=== PATIENT | female | born 1985 | race Caucasian/White ===

== ENCOUNTER → 2017-06-09 13:29 | Outpatient (CLI) | payer MEDICAID ==
[~2017-06-09 13:29] MED LIST: FERROUS SULFAT325 MG PO; IBUPROFEN800 MG PO; MEPERIDINE HCL50 MG PO; PRENATAL GUMMIES
[2017-07-02 13:59] VITALS: BMI 46.2
== END | disposition home or self-care (01) ==
LOC: D.LDO 13:29
DX: O26.893 Other specified pregnancy related conditions, third trimester (principal); Z3A.35 35 weeks gestation of pregnancy; R06.02 Shortness of breath

== ENCOUNTER → 2017-06-23 13:39 | Outpatient (CLI) | payer MEDICAID ==
[2017-07-02 13:59] VITALS: BMI 46.2
== END | disposition home or self-care (01) ==
LOC: D.LDO 13:39
DX: O36.63X0 Maternal care for excessive fetal growth, third trimester, not applicable or unspecified (principal); Z3A.37 37 weeks gestation of pregnancy

== ENCOUNTER → 2017-06-26 12:25 | Outpatient (CLI) | payer MEDICAID ==
[2017-07-02 13:59] VITALS: BMI 46.2
== END | disposition home or self-care (01) ==
LOC: D.LDO 12:25
DX: O26.893 Other specified pregnancy related conditions, third trimester (principal); Z3A.38 38 weeks gestation of pregnancy

== ENCOUNTER → 2017-06-28 21:08 | Outpatient (CLI) | payer MEDICAID ==
[2017-07-02 13:59] VITALS: BMI 46.2
== END | disposition home or self-care (01) ==
LOC: D.LDO 21:08
DX: O40.3XX0 Polyhydramnios, third trimester, not applicable or unspecified (principal); O36.60X0 Maternal care for excessive fetal growth, unspecified trimester, not applicable or unspecified; Z3A.38 38 weeks gestation of pregnancy

== ENCOUNTER → 2017-06-30 15:40 | Outpatient (CLI) | payer MEDICAID ==
[2017-07-02 13:59] VITALS: BMI 46.2
== END | disposition home or self-care (01) ==
LOC: D.LDO 15:40
DX: O36.63X0 Maternal care for excessive fetal growth, third trimester, not applicable or unspecified (principal); Z3A.38 38 weeks gestation of pregnancy

== ENCOUNTER 2017-07-02 05:29 | Inpatient (IN) | payer MEDICAID ==
[2017-07-02] VITALS (10 sets, daily range): BP systolic 113–154; BP diastolic 63–78; BMI 46.3; BMI 46.2
[~2017-07-02 05:29] MED LIST changes: -IBUPROFEN800 MG PO; -MEPERIDINE HCL50 MG PO
[2017-07-02 06:19] LABS: HEMATOCRIT 29.7 % (36.0-48.0); HEMOGLOBIN 9.6 g/dL (12-16); MCH 29.3 pg (26.0-34.0); MCHC 32.3 g/dL (31.0-37.0); MCV 90.5 fL (80.0-100.0); MEAN PLATELET VOLUME 10.7 fL (7.4-10.4); RBC 3.28 10x6/uL (4.00-5.40); RDW 16.5 % (11.5-14.5); WBC 6.3 10x3/uL (4.8-10.8)
[2017-07-02 06:34] LABS: UDS - AMPHET NEGATIVE QUAL (NEGATIVE); UDS - BARB NEGATIVE QUAL (NEGATIVE); UDS - BENZO NEGATIVE QUAL (NEGATIVE); UDS - COCAINE NEGATIVE QUAL (NEGATIVE); UDS - OPIATE NEGATIVE QUAL (NEGATIVE); UDS - PCP NEGATIVE QUAL (NEGATIVE); UDS - THC NEGATIVE QUAL (NEGATIVE)
[2017-07-02 07:04] LABS: APPEARANCE HAZY (CLEAR); BILIRUBIN NEGATIVE (NEGATIVE); COLOR YELLOW (YELLOW); GLUCOSE NEGATIVE (NEGATIVE); KETONE NEGATIVE (NEGATIVE); NITRITE NEGATIVE (NEGATIVE); PROTEIN NEGATIVE (NEGATIVE); UROBILINOGEN NORMAL (NORMAL); WHITE CELLS - URINE 0-5 /hpf (0-5)
[2017-07-02 07:05] LABS: BACTERIA MODERATE /hpf (NONE SEEN); MUCUS <1+ /lpf (NONE SEEN)
--- NOTE | 2017-07-02 08:24 | NUR ---
BABY BOY BORN AT 0801, C SECTION DELIVERY, 9LBS,9OZ. PLACENT AT 0802
--- NOTE | 2017-07-02 09:19 | NUR ---
DERMATOMES UNABLE TO ASSESS THE PATIENT REPORTS FEELING IN ALL LOCATIONS BUT IS UNABLE TO MOVE HER LEGS FOR THE SPINAL. LABOR NURSE IN RECOVERY AND ASSESED THE FUNDUS. FIRM AT UMBILICUS SLIGHTLY TO THE LEFT AND AT UMBILICUS WITH SMALL LOCIA.
--- NOTE | 2017-07-02 09:35 | NUR ---
RECEIVED PT FROM RECOVERY ROOM POST SECTION, REPORT RECEIVED FROM JEO KAMARA RN. PT RECEIVED ON BED, TO BR #1, IVF NOTED TO BE INFUSING OFF PUMP AT MODERATE RATE, NO REDNESS OR SWELLING NOTED TO IV SITE. PITOCIN 20 UNITS PREMIXED BAG INFUSING WITH APPROX 200 ML'S LEFT TO INFUSE, SET ON PUMP BY Siva KAMARA RN AT 125 ML/HR. PT HAS LARGE WHITE DRESSING NOTED TO INCISION, C/D/I. FUNDUS FIRM, 1/U WITH PT'S HOB SLIGHTLY ELEVATED TO 20 DEGREES. SMALL RUBRA LOCHIA, NO CLOTS EXPELLED, PERIPADS X 2 CHANGED. PT HAS OSBORN CATH IN PLACE, WITH 250 ML'S YELLOW URINE NOTED IN UROMETER, PATENT, DRAINING YELLOW URINE. ABDOMEN PALPATES SOFT WITH FUNDUAL CHECKS. PT DENIES NAUSEA/VOMITING, SOB OR DIFFICULTY BREATHING AT THIS TIME. ICE WATER SERVED TO PT. PT HAS SCD'S ON. INCENTIVE SPIROMETER PROVIDED WITH INSTRUCTIONS GIVEN TO PT BY Rosa CHANG, STIVEN AD NS. PT DEMONSTRATES WELL. COUGHING AND DEEP BREATHING EXERCISES EXPLAINED TO PT WITH RETURN DEMONSTRATION, WELL. POSITION CHANGED TO RIGHT TILT, WITH PILLOWS UNDER BACK FOR SUPPORT AND COMFORT. FAMILY AT BEDSIDE. PT DENIES OTHER NEEDS AT THIS TIME. SEE EMAR FOR ALL MEDS ADM BY THIS RN.
--- NOTE | 2017-07-02 10:00 | NUR ---
FUNDUS FIRM, U/U, MODERATE RUBRA LOCHIA, NO CLOTS EXPELLED. PT ABLE TO WIGGLE TOES, WITH WEAKNESS NOTED TO BOTH FEET AND LEGS DUE TO SPINAL ANESTHESIA. PT HAS SECOND STEWARD BUTTON WITHIN REACH, AND DEMONSTRATES AND VOICES UNDERSTANDING REGARDING USE OF SECOND STEWARD BUTTON. FAMILY AT BEDSIDE. PT DENIES OTHER NEEDS.
--- NOTE | 2017-07-02 10:15 | NUR ---
FUNDUS FIRM, U/U, SMALL RUBRA LOCHIA, NO CLOTS, NO FOUL ODOR NOTED TO LOCHIA.
--- NOTE | 2017-07-02 10:30 | NUR ---
PT RATING PAIN AT 5/10 TO INCISIONAL AREA, PT REPORTS "THE DEMEROL AND THE OTHER STUFF YOU GAVE ME IS WORKING OK, BUT HASN'T COMPLETELY HELPED". PT REPORTS SHE WANTS TO WAIT TO SEE IF THESE MEDS WILL CONTINUE TO TAKE MORE OF THE PAIN AWAY BEFORE TAKING ANYTHING ELSE. FUNDUS FIRM, U/U, SMALL RUBRA LOCHIA, NO CLOTS EXPELLED. PT STARTING TO MOVE AND FEEL LEGS MORE, WITH WEAKNESS NOTED TO BOTH DUE TO SPINAL ANESTHESIA. SR UP X2, CALL LIGHT AND PHONE WITHIN REACH.
--- NOTE | 2017-07-02 11:45 | NUR ---
PT RATING PAIN 6/10, PAIN MEDICATION ORDERS REVIEWED WITH PT. DEMEROL 50 MG BOLUS DOSE ADM BY PUMP. PT IS SITTING UP IN THE BED HOLDING , BONDING WITH BABY. FAMILY AT BEDSIDE. PT DENIES OTHER NEEDS AT THIS TIME. DIETARY SERVED CLEAR LIQUIDS. PT DENIES OTHER NEEDS.
--- NOTE | 2017-07-02 13:00 | NUR ---
TO PT'S ROOM, PT IS SITTING UP IN THE BED, HOLDING AND . PT RATING PAIN 4/10 NOW. STATES "THE DEMEROL HAS HELPED WITH THE PAIN". PT DENIES OTHER NEEDS AT THIS TIME.
--- NOTE | 2017-07-02 16:00 | NUR ---
TO PT'S ROOM, FUNDUS FIRM, U/1, MODERATE RUBRA LOCHIA, NO CLOTS EXPRESSED WITH MASSAGE. ABDOMEN CONTINUES TO PALPATE SOFT. PERICARE DONE WITH WARM WET WASHCLOTHS, WITH OSBORN CARE GIVEN. PERIPADS/TOWELS/CHUX CHANGED. GOWN CHANGED. SCANT AMOUNT OF BLOOD ON CENTER BOTTOM EDGE OF BANDAGE THAT HAS COME OFF OF PERIPAD. PT POSITION CHANGED TO LEFT TILT. OSBORN CATH CONTINUES TO DRAIN YELLOW URINE. PT HAS EATEN CLEAR LIQUID DIET, AND DRINKING WATER, DENIES NAUSEA, SOB, OR DIFFICULTY BREATHING AT THIS TIME.
--- NOTE | 2017-07-02 18:15 | NUR ---
TO PT'S ROOM, PERICARE DONE, PERIPADS CHANGED. PT'S POSITION CHANGED TO HER RIGHT TILT WITH PILLOWS UNDER BACK FOR SUPPORT AND COMFORT. NEW ICE VALERIE PLACED OVER GOWN TO INCISION. SCD'S REMAIN ON. PT ABLE TO MOVE AND ASSIST WITH POSITION CHANGE WELL, HAS FULL MOVEMENT OF BOTH LEGS, NO WEAKNESS NOTED. PT USES I/S WELL. LARGE GLASS OF ICE WATER SERVED. PT HAS CLEAR LIQUID TRAY ON BEDSIDE TABLE. PT CONTINUES TO DENY N/V, SOB, OR DIFFICULTY BREATHING AT THIS TIME. FAMILY AT BEDSIDE. INFANT IN CRIB.
--- NOTE | 2017-07-02 19:00 | NUR ---
REPORT GIVEN TO 7 P SHIFT.
--- NOTE | 2017-07-02 19:30 | NUR ---
PM ASSESSMENT COMPLETE. PT REPORTS ADEQUATE PAIN RELIEF FROM PRN MEDS. HAS ICE WATER ON BEDSIDE TABLE. INFANT IN ROOM. FAMILY IN ROOM. BED LOW SR UPX2. C/L IN REACH. NO OTHER NEEDS VOICED.
--- NOTE | 2017-07-02 21:00 | NUR ---
Radha pads and underpands changed. Small amount of lochia noted. Fundus firm. Christensen draining. Pt reports pain well controlled. No other needs voiced. C/L in reach. Bed low. SR upx2. Family at bedside.
--- NOTE | 2017-07-02 21:15 | NUR ---
To room to assist mother to breastfeed infant. Successfully assisted mother to position and latch NB to breast.
--- NOTE | 2017-07-02 22:30 | NUR ---
PT REPORTS PAIN AT IV SITE. IV SITE SWOLLEN AND BRUISED. APPEARS INFILTRATED. IVF STOPPED. IV DC'D WITH TIP INTACT. BANDAGE TO SITE. PT TOLERATED WELL.
--- NOTE | 2017-07-02 22:34 | NUR ---
PRN PAIN MEDICATION ADMINISTERED ORDERED. SENIOR ANALYTIC CONSULTANT DC'D WHEN IV DC'D.
--- NOTE | 2017-07-02 22:42 | NUR ---
OSBORN CATH DC'D WITH TIP INTACT. PT TOLERATED WELL. INSTRUCTED TO CALL FOR ASSISTANCE TO BATHROOM WHEN FEELS URGE TO VOID. PT VERB UNDERSTANDING. C/L IN REACH. BED LOW. SR UPX2.
--- NOTE | 2017-07-02 23:22 | NUR ---
Pt resting with eyes closed. VS obtained. Reports feeling "sweaty and clammy" from pain medication. Denies pain. Room temp decreased. Fresh ice water provided. C/L in reach. Bed low. SR upx2. No other needs voiced.
--- NOTE | 2017-07-03 00:35 | NUR ---
CALLED TO ROOM BY PATIENT AT THIS TIME, PT REQUESTING ASSISTANCE WITH . INFANT PLACED IN FOOTBALL HOLD AND PT ASSISTED WITH GETTING TO LATCH. UNSUCCESSFUL AFTER MULTIPLE ATTEMPTS SO PATIENT REQUESTED TO USE THE NIPPLE SHIELD. NIPPLE SHIELD APPLIED AND AFTER TWO ATTEMPTS AT LATCHING PATIENT STATES, "CAN I JUST GET A BOTTLE? HE JUST SCREAMS LIKE SOMETHING IS WRONG OR HE ISNT GETTING ANYTHING" PATIENT REASSURED AND NURSERY NURSE INFORMED OF PATIENT WANTING TO FEED HER BABY A BOTTLE.
--- NOTE | 2017-07-03 02:03 | NUR ---
Pt request prn pain med. See EMAR for manager medical. VS obtained while in room. Pt denies any other needs or concerns. Discussed getting OOB and voiding by 0400. Pt verbalizes understanding. No other questions voiced. C/L in reach. Bed low. SR upx2.
[2017-07-03 02:04] VITALS: BP 125/58
--- NOTE | 2017-07-03 04:00 | NUR ---
Pt reports urge to void. Assisted up to sitting position on side of bed. Deniez dizziness. Ambulated with slow steady gait to bathroom with nurse at side. Voided 500ml urine into hat. Pilar care performed. Mesh panties and pilar pads applied. Blue underpad on bed changed while pt on toilet. Pt ambulated back to bed with steady gait. Fresh ice pack provided. Fresh ice water provided. C/L in reach. Bed low. SR upx2. Pt asking for . NBN notified.
[2017-07-03 05:19] LABS: HEMATOCRIT 28.9 % (36.0-48.0); HEMOGLOBIN 9.2 g/dL (12-16); MCH 28.8 pg (26.0-34.0); MCHC 31.8 g/dL (31.0-37.0); MCV 90.3 fL (80.0-100.0); MEAN PLATELET VOLUME 11.1 fL (7.4-10.4); RBC 3.2 10x6/uL (4.00-5.40); RDW 16.9 % (11.5-14.5); WBC 5.8 10x3/uL (4.8-10.8)
[2017-07-03 05:30] VITALS: BP 132/72
--- NOTE | 2017-07-03 05:30 | NUR ---
To room to assist pt with . VS obtained at this time. Pt reports adequate pain relief with prn pain meds. C/L in reach. Bed low. SR upx2.
--- NOTE | 2017-07-03 06:21 | NUR ---
Pt request prn pain medication. See EMAR for medical i d sales. No other needs voiced.
[2017-07-03 07:26] LABS: RAPID PLASMA REAGIN Non Reactive (Non Reactive)
[2017-07-03 07:27] VITALS: BP 123/69
--- NOTE | 2017-07-03 07:27 | NUR ---
RECEIVED PT LYING SUPINE IN BED. AWAKE. VSS. HRRR WITHOUT AUDIBLE MURMUR. BBS CLEAR. BS HYPOACTIVE X 4. STATES PASSING GAS. ABDOMEN SOFT/NON-DISTENDED. FUNDUS FIRM AT U/U. RUBRA LOCHIA SMALL AMT. NO CLOTS NOTED. PT STATES PASSING GAS. ABDOMINAL DRESSING DRY WITHOUT DRAINAGE. NEG HOMANS' SIGN. PPP. 2+/2+ NON-PITTING EDEMA NOTED TO BLE. PT STATES C/O BURNING OF "5" ON 0-10 PAIN SCALE. IBUPROFEN 600 MG GIVEN PO ORDERED. PT INSTRUCTED ON MED. VERBALIZES UNDERSTANDING. FRESH ICE WATER PROVIDED TO PT. SR UP X 2. CALL LIGHT IN REACH.
--- NOTE | 2017-07-03 08:30 | NUR ---
DR CHANG VISITS WITH PT.
--- NOTE | 2017-07-03 08:30 | NUR ---
PT LYING SUPINE IN BED. PT RESTING WITH EYES CLOSED. RESP NON-LABORED. PT NOT DISTURBED TO ALLOW FOR REST.
--- NOTE | 2017-07-03 09:30 | NUR ---
PT UP TO BR. VOIDS 800 ML OF LARGE AMT OF BLOOD-TINGED URINE. PERICARE DONE. PT STATES DESIRE TO SHOWER.
--- NOTE | 2017-07-03 09:47 | NUR ---
PT UP TO SHOWER. LINENS CHANGED.
--- NOTE | 2017-07-03 10:13 | NUR ---
PT FINISHED WITH SHOWER. PT BACK TO BED. ABDOMINAL DRESSING REMOVED. INCISION WITHOUT REDNESS, SWELLING OR DRAINAGE. STERISTRIPS INTACT. PERIPAD TO INCISION.
--- NOTE | 2017-07-03 11:10 | NUR ---
PT CALLS ON LIGHT. REQUESTS PAIN MED FOR INCISIONAL BURNING PAIN OF "7" ON 0-10 PAIN SCALE. DEMEROL 100 MG GIVEN PO. PT INSTRUCTED ON MED. VERBALIZES UNDERSTANDING.
--- NOTE | 2017-07-03 12:08 | NUR ---
PT LYING SUPINE IN BED. WAKES UPON ENTERING ROOM. HOLDS INFANT WITH MUCH WARMTH SHOWN. STATES PAIN MED RELIEVING PAIN.
--- NOTE | 2017-07-03 14:10 | NUR ---
PT AMBULATORY TO BR TO VOID AT THIS TIME. DENIES NEEDS.
--- NOTE | 2017-07-03 14:21 | NUR ---
PT AMBULATORY BACK TO BED. VOIDS 600 ML OF CLOUDY YELLOW URINE. C/O INCISIONAL PAIN. IBUPROFEN 600 MG GIVEN PO ORDERED. PT INSTRUCTED ON MED. VERBALIZES UNDERSTANDING.
--- NOTE | 2017-07-03 14:22 | NUR ---
ABDOMINAL BINDER ON AT THIS TIME.
--- NOTE | 2017-07-03 15:16 | NUR ---
PT SITTING UP IN BED. VISITS WITH FAMILY. C/O INCISIONAL PAIN/BURNING OF "6-7" ON 0-10 PAIN SCALE. DEMEROL 100 MG GIVEN PO ORDERED.
[2017-07-03 16:16] VITALS: BP 125/74
--- NOTE | 2017-07-03 16:16 | NUR ---
PT LYING SUPINE IN BED. VISITS WITH FAMILY. VSS. STATES PAIN NOW "4" ON 0-10 PAIN SCALE. FUNDUS FIRM AT U/1. RUBRA LOCHIA SMALL AMT. ABDOMINAL INCISION WITHOUT REDNESS, SWELLING OR DRAINAGE NOTED. PERIPAD DRY. STERISTRIPS INTACT. PT DENIES NEEDS OR C/O.
--- NOTE | 2017-07-03 17:45 | NUR ---
PT SITTING UP IN BED. VISITS WITH FAMILY. DENIES C/O OR NEEDS.
--- NOTE | 2017-07-03 18:57 | NUR ---
REPORT GIVEN TO ON-COMING SHIFT.
--- NOTE | 2017-07-03 19:03 | NUR ---
REPORT REC'D FROM PM SHIFT. PT UP IN BATHROOM AT THIS TIME. DENIES NEEDS. WILL CONTINUE TO MONITOR AND ASSIST PRN.
--- NOTE | 2017-07-03 19:22 | NUR ---
PT OUT OF BATHROOM AND AMBULATING IN ROOM. RN ASSISTED WITH ABD BINDER SECURMENT AND ADJUSTMENT. PAIN 04/10, PT REQUESTS DEMEROL, INCISIONAL BURNING AND STINGING WITH OCCASIONAL ABD CRAMPING. GIVEN PER ORDERS AND PT REQUEST. PT ALSO REPORTS THAT SHE HAS "GAS PAINS SOMETIMES." STATES THAT SHE IS PASSING FLATUS AND THIS IS NOT THE PAIN SHE IS FEELING. DISCUSSED SIMETHICONE AND IMPORTANCE OF AMBULATION WITH HELPING THIS. PT STATES THAT SHE WILL AMBULATE WITH RN AT THIS TIME. PT AMBULATING IN RIVERS TO NURSES STATION WITH STANDBY ASSIST OF RN.
[2017-07-03 19:35] VITALS: BP 128/76
--- NOTE | 2017-07-03 19:35 | NUR ---
PT BACK TO ROOM FROM AMBULATING WITH RN. DR. BURTON AT BEDSIDE DISCUSSING INFANTS PLAN OF CARE AND ANSWERING QUESTIONS. FOLLOWING DISCUSSION WITH DR. BURTON SHIFT ASSESSMENT COMPLETED. VSS. FUNDUS FIRM, U3 AND MIDLINE, SMALL AMT RUBRA LOCHIA, NO CLOTS PRESENT. BREATH SOUNDS CLEAR AND EQUAL BILATERALLY, RESPIRATIONS REGULAR AND UNLABORED, NO S/S OF DISTRESS NOTED. BOWEL SOUNDS PRESENT AND ACTIVE X4 QUADRANTS. PT REPORTS THAT SHE IS VOIDING WITHOUT DIFFICULTY AND PASSING FLATUS. MILD 2+ BLE EDEMA NOTED. FAMILY MEMBER REMAIN AT BEDSIDE. PLAN OF CARE DISCUSSED WITH PT, DENIES QUESTIONS. DISCHARGE PLANNING DISCUSSED WITH PT, DENIES QUESTIONS. INCISION CLEAN AND DRY, STERISTRIPS IN PLACE WITH NO DRAINAGE NOTED. PERIPAD PLACED BACK BETWEEN ABD FOLD, PT VERBALIZES PROPER INCISION CARE WHEN SHE GOES HOME AND S/S OF INFECTION TO REPORT TO MD IF NOTED. BED IN LOW POSITION WITH UPPER SIDE RAILS RAISED X2. CL AND PHONE WITHIN REACH. WILL CONT TO MONITOR AND ASSIST PRN.
--- NOTE | 2017-07-03 20:10 | NUR ---
PAIN REASSESSMENT COMPLETED. PAIN 11/08. DISCUSSED USE OF MOTRIN IN CONJUNCTION WITH DEMEROL. PT STATES THAT SHE WILL NOTIFY RN IF SHE DECIDES TO TAKE MOTRIN. PT ATTEMPTING TO BREASTFEED AT THIS TIME. DENIES NEEDS FOR ASSISTANCE AT THIS TIME. BED IN LOW POSITION WITH UPPER SIDE RAILS RAISED X2. CL AND PHONE WITHIN REACH. WILL CONT TO MONITOR AND ASSIST PRN.
--- NOTE | 2017-07-03 20:25 | NUR ---
PT CALLS VIA CL. PAIN /, INCISIONAL BURNING AND STINGING. PT REQUESTS MOTRIN AT THIS TIME. CRANBERRY JUICE ALSO GIVEN PER REQUEST. DENIES ADDITIONAL NEEDS AT THIS TIME. BRIAN ALEXIS RN AT BEDSIDE ASSISTING PT WITH FEEDING INFANT. BED REMAINS IN LOW POSITION WITH UPPER SIDE RAILS RAISED X2. CL AND PHONE WITHIN REACH. WILL CONT TO MONITOR AND ASSIST PRN.
--- NOTE | 2017-07-03 21:13 | NUR ---
PAIN REASSESSMENT COMPLETED. PAIN 3/10 AT THIS TIME. IN ARMS BONDING. DENIES NEEDS AT THIS TIME. S/O AT BEDSIDE NOW, LINES PROVIDED. BED IN LOW POSITION WITH UPPER SIDE RAILS RAISED X2. CL AND PHONE WITHIN REACH. WILL CONT TO MONITOR AND ASSIST PRN.
--- NOTE | 2017-07-03 22:20 | NUR ---
RN TO BEDSIDE FOR ROUNDS. PT RESTING WITH EYES CLOSED. RESPIRATIONS REGULAR AND UNLABORED, NO S/S OF DISTRESS NOTED. S/O RESTING ON COUCH AT BEDSIDE. BED IN LOW POSITION WITH UPPER SIDE RAILS RAISED X2. CL AND PHONE WITHIN REACH. WILL CONT TO MONITOR AND ASSIST PRN.
[2017-07-04 00:12] VITALS: BP 135/76
--- NOTE | 2017-07-04 00:12 | NUR ---
RN TO BEDSIDE FOR ROUNDS. PAIN 8/10 INCISIONAL BURNING AND STINGING. REQUESTS PAIN MEDICATION, DEMEROL GIVEN PER ORDERS. VSS. FUNDUS FIRM, U3 WITH SMALL AMT RUBRA LOCHIA, NO CLOTS. CRANBERRY JUICE GIVEN PER REQUEST. DENIES ADDITIONAL NEEDS. RN DEMONSTRATED SWADDLING TO PT, VERBALIZES UNDERSTANDING. S/O REMAINS AT BEDSIDE, SUPPORTIVE AND ATTENTIVE TO PT AND HER NEEDS. INFANT RESTING QUIETLY IN PT'S ARM, RESPIRATIONS REGULAR AND UNLABORED. NO S/S OF DISTRESS NOTED. BED IN LOW POSITION WITH UPPER SIDE RAILS RAISED X2. CL AND PHONE WITHIN REACH. WILL CONT TO MONITOR AND ASSIST PRN.
--- NOTE | 2017-07-04 01:03 | NUR ---
PAIN REASSESSMENT COMPLETED. PT RESTING WITH EYES CLOSED, RESPIRATIONS REGULAR AND UNLABORED, NO S/S OF DISTRESS NOTED. S/O HOLDING INFANT IN ARMS AT THIS TIME. S/O DENIES NEEDS. BED IN LOW POSITION WITH UPPER SIDE RAILS RAISED X2. CL AND PHONE WITHIN REACH. WILL CONT TO MONITOR AND ASSIST PRN.
--- NOTE | 2017-07-04 02:13 | NUR ---
PT CALLS VIA CL. RN TO ROOM. PT ATTEMPTING TO CHANGE WET AND DIRTY DIAPER. PT ASKS FOR ASSISTANCE WITH DIAPER CHANGE D/T FECES BEING AROUND CIRC SITE. RN DEMONSTRATED TO PT CARE FOR SITE, VERBALIZES UNDERSTANDING AND DENIES ADDITIONAL NEEDS.
--- NOTE | 2017-07-04 02:22 | NUR ---
PT CALLS VIA CL. RN TO BEDSIDE, PT REPORTS THAT INFANT GAGED AND ACTED IF HE COULD NOT BREATH. NOTED TO BE ROOTING AND SUCKING ON HAND. INFANTS RESPIRATIONS 43, REGULAR AND UNLABORED, NO S/S OF DISTRESS NOTED, COLOR WNL. RN INSTRUCTED PT THAT INFANT ROOTING AND SUCKING WERE HUNGER SIGNS, VERBALIZES UNDERSTANDING. BRIAN ALEXIS RN NOTIFIED AND WILL ALSO ASSESS INFANT.
--- NOTE | 2017-07-04 04:10 | NUR ---
RN TO BEDSIDE FOR ROUNDS. PT RESTING WITH EYES CLOSED. RESPIRATIONS REGULAR AND UNLABORED, NO S/S OF DISTRESS NOTED. BED IN LOW POSITION WITH UPPER SIDE RAILS RAISED X2. CL AND PHONE WITHIN REACH. WILL CONT TO MONITOR AND ASSIST PRN.
[2017-07-04 05:40] VITALS: BP 141/82
--- NOTE | 2017-07-04 05:40 | NUR ---
RN TO BEDSIDE FOR ROUNDS. BRIAN ALEXIS RN, LEAVING ROOM WITH STATING THAT PT STATES SHE WANTS TO REST. VSS. FUNDUS FIRM U3 WITH SMALL AMT RUBRA LOCHIA, NO CLOTS PRESENT. PAIN 5/10 ABD CRAMPING AND INCISIONAL BURNING AND STINGING. PT ALSO REPORTS THAT SHE IS SORE TODAY, REQUESTS MOTRIN AND DEMEROL TOGETHER AT THIS TIME. EXPLAINED ORDER FOR DEMEROL AND DIFFERENCE BETWEEN MODERATE AND SEVERE PAIN SCALE, VERBALIZES UNDERSTANDING. ICE WATER AND JUICE PROVIDED, DENIES ADDITIONAL NEEDS. S/O RESTING ON COUCH AT BEDSIDE. BED IN LOW POSITION WITH UPPER SIDE RAILS RAISED X2. CL AND PHONE WITHIN REACH. WILL CONT TO MONITOR AND ASSIST PRN.
--- NOTE | 2017-07-04 06:25 | NUR ---
PAIN REASSESSMENT COMPLETED. PT RESTING WITH EYES CLOSEDS ON RIGHT SIDE IN SEMI FOWLERS POSITION. RESPIRATIONS REGULAR AND UNLABORED, NO S/S OF DISTRESS NOTED. BED IN LOW POSITION WITH UPPER SIDE RAILS RAISED X2. CL AND PHONE WITHIN REACH. WILL CONT TO MONITOR AND ASSIST PRN. S/O REMAINS AT BEDSIDE RESTING ON COUCH.
--- NOTE | 2017-07-04 07:30 | NUR ---
PT LYING SUPINE IN BED. EYES CLOSED. RESP NON-LABORED. PT NOT DISTURBED TO ALLOW FOR REST. SR UP X 2. CALL LIGHT IN REACH.
[2017-07-04 08:11] VITALS: BP 143/86
--- NOTE | 2017-07-04 08:11 | NUR ---
PT LYING SUPINE IN BED. WAKES UPON ENTERING ROOM. VSS. AAO X 3. PT STATES AUGUSTINA JUST LEFT ROOM AND BABY BEING DISCHARGED TODAY. HRRR WITHOUT AUDIBLE MURMUR. BBS CLEAR. BS X 4. ABDOMEN SOFT/NON-DISTENDED. FUNDUS FIRM AT U/1. RUBRA LOCHIA SMALL TO MOD AMT. NO CLOTS NOTED. ABDOMINAL BINDER REMOVED FOR EXAM. INCISION WITH STERISTRIPS WITHOUT REDNESS, SWELLING OR DRAINAGE NOTED. PERIPAD TO INCISION. NEG HOMANS' SIGN. MILD NON-PITTING EDEMA NOTED TO BLE. PPP. PT OOB AND AMB TO BR TO SHOWER AT THIS TIME. LINENS PROVIDED.
--- NOTE | 2017-07-04 08:20 | NUR ---
DR CHANG TO ROOM. VISITS WITH PT.
--- NOTE | 2017-07-04 09:06 | NUR ---
PT CALLS ON LIGHT. REQUESTS AND RECEIVES DEMEROL 100 MG PO FOR C/O INCISIONAL PAIN/BURNING OF "5" ON 0-10 PAIN SCALE. PT ALSO REQUESTS AND RECEIVES CRANBERRY JUICE.
[2017-07-04] MEDS ORDERED: IBUPROFEN800 MG PO (10:16)
[2017-07-04] MEDS ORDERED: MEPERIDINE HCL50 MG PO (10:16)
--- NOTE | 2017-07-04 11:15 | NUR ---
DISCHARGE INSTRUCTIONS GIVEN TO PT. PT VERBALIZES UNDERSTANDING OF ALL INSTRUCTIONS. COPIES GIVEN TO PT. RX OF DEMEROL AND IBUPROFEN OBTAINED BY SO AT [facility] OFFICE. PT GIVEN TDAP 0.5 ML IM TO LEFT DELTOID AND FLU VACCINE 0.5 ML TO RIGHT DELTOID. PT INSTRUCTED ON BOTH MEDS. VERBALIZES UNDERSTANDING AND ZINA WELL. PT PREPARES FOR DISCHARGE.
--- NOTE | 2017-07-04 11:50 | NUR ---
PT READY FOR DISCHARGE. DISCHARGED WITH VIA WHEELCHAIR TO PRIVATE VEHICLE. BOTH ZINA WELL.
== END 2017-07-04 11:50 | disposition home or self-care (01) | DRG 766 ==
LOC: D.LD 05:29 → D.SDCHOLD 07:30 → D.LD 07-04 11:50
PROVIDERS: ADMIT Obstetrics & Gynecology
PROC: 10D00Z1 Extraction of Products of Conception, Low, Open Approach (ICD-10-PCS; principal; 2017-07-02 07:30)
DX: O36.63X0 Maternal care for excessive fetal growth, third trimester, not applicable or unspecified (principal); Z3A.39 39 weeks gestation of pregnancy; Z37.0 Single live birth; Z87.891 Personal history of nicotine dependence